=== PATIENT | male | born 1940 | race Caucasian/White ===

== ENCOUNTER → 2020-08-04 12:51 | Outpatient (BNVA) | payer MEDICARE, SELFPAY | PROVIDERS: PCP Internal Medicine; Visit Provider Student in an Organized Health Care Education/Training Program | DX: M31.6 Other giant cell arteritis (principal); M70.62 Trochanteric bursitis, left hip; M35.3 Polymyalgia rheumatica | CPT/HCPCS: 99213 ==

== ENCOUNTER → 2020-08-07 12:34 | Outpatient (BNVA) | payer MEDICARE, SELFPAY | PROVIDERS: PCP Internal Medicine; Visit Provider Internal Medicine | DX: I25.10 Atherosclerotic heart disease of native coronary artery without angina pectoris (principal); E78.5 Hyperlipidemia, unspecified; Z95.5 Presence of coronary angioplasty implant and graft | CPT/HCPCS: 99214 ==

== ENCOUNTER 2020-08-09 09:50 | Outpatient (REF) | payer MEDICARE, SELFPAY ==
[2020-08-09 14:28] LABS: Erythrocyte Sedimentation Rate 21 MM/HR (0-15)
[2020-08-09 14:35] LABS: C Reactive Protein 1.76 mg/dL (< or = 0.50)
[2020-08-09 14:41] LABS: Alanine Aminotransferase 11 U/L (0-40); Albumin Level 4.1 g/dL (3.5-5.0); Alkaline Phosphatase 48 U/L (39-117); Aspartate Amino Transferase 14 U/L (5-37); Bilirubin Direct 0.2 mg/dL (0.0-0.5); Bilirubin Total 0.5 mg/dL (0.0-1.0); Cholesterol 162 mg/dL; HDL Cholesterol 60 mg/dL; LDL Cholesterol Calculated 92 mg/dl; Total Protein 6.8 g/dL (6.5-8.0); Triglycerides 52 mg/dL
== END 2020-08-09 09:51 | disposition home or self-care (01) ==
LOC: HO.10HDL 09:50
PROVIDERS: Student in an Organized Health Care Education/Training Program; Visit Provider Internal Medicine
DX: I25.10 Atherosclerotic heart disease of native coronary artery without angina pectoris (principal); M31.6 Other giant cell arteritis
CPT/HCPCS: 36415; 80061; 80076; 85652; 86140

== ENCOUNTER 2020-08-15 11:13 | Outpatient (REF) | payer MEDICARE, SELFPAY ==
[2020-08-15 12:00] LABS: MANUAL DIFF FLAG NO
[2020-08-15 12:12] LABS: Basophils Percent Auto 0.4 % (0-2); Eosinophils Absolute Auto 0.2 X10*3/uL (0.0-0.4); Eosinophils Percent Auto 2.1 % (0-4); Hematocrit 40.5 % (42-52); Hemoglobin 13.4 g/dl (14.0-18.0); Imm Gran Abs Auto 0.06 X10*3/uL (0.00-0.03); Imm Gran Pct Auto 0.7 % (0.0-0.4); Lymphocytes Absolute Auto 1.9 X10*3/uL (1.2-4.9); Lymphocytes Percent Auto 20.5 % (20-40); Mean Corpuscular HGB Conc 33.1 g/dl (31.0-36.0); Mean Corpuscular Hemoglobin 31.8 pg (27.0-33.0); Mean Corpuscular Volume 96.2 fL (80-98); Monocytes Absolute Auto 0.7 X10*3/uL (0.1-1.2); Monocytes Percent Auto 7.4 % (2-11); Neutrophils Absolute Auto 6.3 X10*3/uL (2.0-8.3); Neutrophils Percent Auto 68.9 % (45-73); Platelet Count 276 X10*3/uL (160-400); Red Blood Count 4.21 X10*6/uL (4.60-5.80); White Blood Count 9.2 X10*3/uL (4.8-10.8)
[2020-08-15 12:41] LABS: Alanine Aminotransferase 14 U/L (0-40); Albumin Level 4.3 g/dL (3.5-5.0); Alkaline Phosphatase 51 U/L (39-117); Anion Gap 12 (12-20); Aspartate Amino Transferase 18 U/L (5-37); Bilirubin Total 0.5 mg/dL (0.0-1.0); Blood Urea Nitrogen 21 mg/dL (9-16); Calcium 9.5 mg/dL (8.4-10.2); Carbon Dioxide 27 mmol/L (22-29); Chloride 104 mmol/L (96-108); Cholesterol 170 mg/dL; Estimated Glomerular Filt Rate > 60; Glucose Fasting 90 mg/dL (60-99); HDL Cholesterol 59 mg/dL; Iron 106 mcg/dL (45-160); LDL Cholesterol Calculated 100 mg/dl; Percent Iron Saturation 34 % (15-50); Potassium 4.2 mmol/l (3.3-5.1); Sodium 139 mmol/L (135-145); Total Iron Binding Capacity 309 mcg/dL (228-428); Total Protein 7.2 g/dL (6.5-8.0); Triglycerides 59 mg/dL; Unsaturated Iron Binding 203 ug/dL
[2020-08-15 12:46] LABS: TSH reflex Free T4 1.83 mIU/mL (0.32-4.0); Vitamin D 25-OH Total 88.6 ng/mL (>30)
[2020-08-15 13:25] LABS: Erythrocyte Sedimentation Rate 16 MM/HR (0-15)
== END 2020-08-15 11:14 | disposition home or self-care (01) ==
LOC: HO.LAB 11:13
PROVIDERS: PCP Internal Medicine; Visit Provider Internal Medicine
DX: M35.3 Polymyalgia rheumatica (principal); E78.00 Pure hypercholesterolemia, unspecified; I25.10 Atherosclerotic heart disease of native coronary artery without angina pectoris; D50.0 Iron deficiency anemia secondary to blood loss (chronic); K21.9 Gastro-esophageal reflux disease without esophagitis; E55.9 Vitamin D deficiency, unspecified; E66.9 Obesity, unspecified
CPT/HCPCS: 36415; 80053; 80061; 82306; 82550; 83540; 84443; 85025; 85652

== ENCOUNTER 2020-08-17 11:44 | Outpatient (REF) | payer MEDICARE, SELFPAY ==
--- NOTE | 2020-08-17 11:52 | XR_ITS ---
EXAMINATION: XR LUMBOSACRAL SPINE CLINICAL INFORMATION: Lower back pain COMPARISON: None TECHNIQUE: Three views of the lumbosacral spine. FINDINGS: No acute fracture or subluxation. Vertebral body height and alignment is maintained. Mild multilevel disc space narrowing. Endplate osteophytes throughout the lumbar spine. The sacroiliac joints are symmetric. The visualized sacrum is intact. The visualized bowel gas pattern is unremarkable. Right upper quadrant surgical clips. IMPRESSION: Moderate multilevel degenerative changes of the lumbar spine.
== END 2020-08-17 11:45 | disposition home or self-care (01) ==
LOC: HO.XRAY 11:44
PROVIDERS: PCP Internal Medicine; Visit Provider Internal Medicine
DX: M54.5 Low back pain (principal)
CPT/HCPCS: 72100

== ENCOUNTER 2020-10-09 10:15 | Outpatient (REF) | payer MEDICARE, SELFPAY ==
[2020-10-09 13:46] LABS: Hematocrit 39.3 % (42-52); Mean Corpuscular HGB Conc 33.1 g/dl (31.0-36.0); Mean Corpuscular Hemoglobin 32.6 pg (27.0-33.0); Mean Corpuscular Volume 98.5 fL (80-98); Mean Platelet Volume 9.2 fL (9.4-12.4); Platelet Count 262 X10*3/uL (160-400); Red Blood Count 3.99 X10*6/uL (4.60-5.80); Red Cell Distribution Width 13.1 % (11.0-16.0)
[2020-10-09 14:25] LABS: Iron 93 mcg/dL (45-160); Percent Iron Saturation 32 % (15-50); Total Iron Binding Capacity 293 mcg/dL (228-428); Unsaturated Iron Binding 200 ug/dL
[2020-10-09 14:46] LABS: Ferritin 215 ng/mL (20-250)
[2020-10-09 15:20] LABS: Folate 7.4 ng/mL (> or = 4.0); Vitamin B12 1996 pg/mL (200-900)
== END 2020-10-09 10:16 | disposition home or self-care (01) ==
LOC: HO.10HDL 10:15
PROVIDERS: Visit Provider Internal Medicine Gastroenterology
DX: Z87.19 Personal history of other diseases of the digestive system (principal)
CPT/HCPCS: 36415; 82607; 82728; 82746; 83540; 85027

== ENCOUNTER 2021-06-11 12:36 | Emergency (ER) | payer MEDICARE, SELFPAY ==
--- NOTE | ~2021-06-11 | XR_ITS ---
EXAMINATION: CHEST AND ABDOMEN CLINICAL INFORMATION: Chest pain. Question perforation or free air. COMPARISON: May 02, 2020 TECHNIQUE: AP film of the chest and 2 views of the abdomen. FINDINGS: Within the chest there is no evidence of acute parenchymal disease, pneumothorax, or pleural effusion. Heart normal size. No evidence of pulmonary edema. Calcified granuloma is seen within the right lower lobe. Degenerative spurring is seen throughout the thoracic spine. No dilated loops of large or small bowel are evident. No free intra-abdominal air is seen. Stool and gas is seen throughout nondilated colon. Clips within the right upper quadrant seen consistent with previous cholecystectomy. Changes of enthesopathy about the pelvis seen. Multilevel degenerative disc disease is seen within the lumbar spine. There appear to be some compression fractures present L1-L3. XR/XR KUB IMPRESSION: No acute parenchymal disease within the chest. No evidence of free intra-abdominal air or obstruction within the abdomen.
--- NOTE | ~2021-06-11 | XR_ITS ---
EXAMINATION: CHEST AND ABDOMEN CLINICAL INFORMATION: Chest pain. Question perforation or free air. COMPARISON: May 02, 2020 TECHNIQUE: AP film of the chest and 2 views of the abdomen. FINDINGS: Within the chest there is no evidence of acute parenchymal disease, pneumothorax, or pleural effusion. Heart normal size. No evidence of pulmonary edema. Calcified granuloma is seen within the right lower lobe. Degenerative spurring is seen throughout the thoracic spine. No dilated loops of large or small bowel are evident. No free intra-abdominal air is seen. Stool and gas is seen throughout nondilated colon. Clips within the right upper quadrant seen consistent with previous cholecystectomy. Changes of enthesopathy about the pelvis seen. Multilevel degenerative disc disease is seen within the lumbar spine. There appear to be some compression fractures present L1-L3. XR/XR chest 1V IMPRESSION: No acute parenchymal disease within the chest. No evidence of free intra-abdominal air or obstruction within the abdomen.
[2021-06-11 13:05] VITALS: BP 138/66; PULSE 64; RESP 17; TEMP 36.8; O2SAT 96; BMI 29.5
--- NOTE | 2021-06-11 13:11 | ECG_ITS ---
Test Reason : CP Blood Pressure : / mmHG Vent. Rate : 064 BPM Atrial Rate : 064 BPM P-R Int : 162 ms QRS Dur : 068 ms QT Int : 400 ms P-R-T Axes : -22 -01 048 degrees QTc Int : 412 ms Normal sinus rhythm Septal infarct , age undetermined Abnormal ECG When compared with ECG of 01-MAY-2020 23:35, Septal infarct is now Present Referred By: Tony Ken Electronically Signed By:HOMER KINCAID MD
--- NOTE | 2021-06-11 13:13 | ED.GENADULT ---
HPI - General Adult General Chief complaint: General Medical Stated complaint: ? gi bleed Time Seen by Provider: 06/11/21 13:11 Related Data Home Medications Medication Instructions Recorded Confirmed acetaminophen 650 mg 650 mg PO Q8H 08/02/20 10/10/20 tablet,extended release ascorbate calcium (vitamin C) 500 500 mg PO DAILY 08/02/20 10/10/20 mg tablet aspirin 81 mg chewable tablet 81 mg PO DAILY 08/02/20 10/10/20 omega-3 fatty acids 1,000 mg 1,000 mg PO DAILY 08/02/20 10/10/20 capsule (Fish Oil Concentrate) omeprazole 20 mg capsule,delayed 20 mg PO BID 08/02/20 10/10/20 release hydrochlorothiazide 25 mg tablet 25 mg PO DAILY 08/07/20 10/10/20 rosuvastatin 20 mg tablet 20 mg PO BEDTIME 08/07/20 10/10/20 furosemide 20 mg tablet 20 mg PO DAILY 08/17/20 10/10/20 gabapentin 300 mg capsule 300 mg PO DAILY 10/10/20 10/10/20 Previous Rx's Medication Instructions Recorded allopurinol 100 mg tablet 100 mg PO DAILY 30 Days #30 tab 08/17/20 clotrimazole-betamethasone 1 1 applic TOPICAL BID 28 Days #45 g 08/17/20 %-0.05 % topical cream metoprolol succinate 25 mg 25 mg PO DAILY #90 tab 03/02/21 tablet,extended release 24 hr Allergies Allergy/AdvReac Type Severity Reaction Status Date / Time atorvastatin AdvReac Intermediate Weakness Verified 06/11/21 13:05 [facility] Past Medical History Medical History Atherosclerotic cardiovascular disease Benign essential hypertension 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 pectoris GERD (gastroesophageal reflux disease) Gout Gout Heart attack Hemorrhage of gastrointestinal tract, unspecified Hyperlipidemia, unspecified Iron deficiency anemia Lumbar degenerative disc disease Obesity (BMI 30-39.9) Pure hypercholesterolemia Spinal cord cysts (~1977) Spinal stenosis Statin intolerance Vitamin D deficiency Surgical History History of cholecystectomy History of colonoscopy (~02/23/19) History of esophagogastroduodenoscopy (EGD) History of knee replacement procedure of left knee (~2012) History of knee replacement procedure of right knee (~11/2017) Hx of cardiac cath Stented coronary artery (~04/2018) Family History Family History Father Emphysema lung Mother No problems noted. Daughter Multiple sclerosis Social History Social History (Updated 10/10/20 @ 14:34 by Lizzy Lockwood CMA) Household Members: Spouse Housing: House Are you a primary clinical manager home care to a significant other at home: No Do you presently have visiting nurse or other home services: No 75 years or older and lives alone: Yes Alcohol intake: never Advance Directives Date on File: 08/09/20 service: No Current occupational status: retired Physical Exam Vital Signs: Vital Signs: Last Vital Signs Temp 98.2 F 06/11/21 13:05 Pulse 64 06/11/21 13:05 Resp 17 06/11/21 13:05 BP 138/66 06/11/21 13:05 Pulse Ox 96 06/11/21 13:05 Body Mass Index 29.5 Course Course Course Narrative: Patient presents to the ED for abdominal pain/mid sternal chest pain after eating and stool is black. patient taking iron pills. patient vital signs are stable. patient made a level 2 priority to be brought to the ED quickly. Labs, ekg ordered. This is rapid medical screening Medical Decision Making Lab Data Result diagrams: 06/11/21 13:30 06/11/21 13:30 Labs: Lab Results 06/11/21 06/11/21 06/11/21 Range/Units 13:30 13:30 13:30 WBC 7.1 (4.8-10.8) X10*3/uL RBC 4.00 L (4.60-5.80) X10*6/uL Hgb 13.6 L (14.0-18.0) g/dl Hct 40.2 L (42-52) % MCV 100.5 H (80-98) fL MCH 34.0 H (27.0-33.0) pg MCHC 33.8 (31.0-36.0) g/dl RDW 13.3 (11.0-16.0) % Plt Count 249 (160-400) X10*3/uL MPV 8.8 L (9.4-12.4) fL Immature Gran % (Auto) 0.1 (0.0-0.4) % Neut % (Auto) 66.8 (45-73) % Lymph % (Auto) 21.4 (20-40) % [place] % (Auto) 9.2 (2-11) % Eos % (Auto) 2.1 (0-4) % Baso % (Auto) 0.4 (0-2) % Lymph # (Auto) 1.5 (1.2-4.9) X10*3/uL [place] # (Auto) 0.7 (0.1-1.2) X10*3/uL Eos # (Auto) 0.2 (0.0-0.4) X10*3/uL Baso # (Auto) 0.0 (0.0-0.2) X10*3/uL Abs Immat Gran (auto) 0.01 (0.00-0.03) X10*3/uL Absolute Neuts (auto) 4.7 (2.0-8.3) X10*3/uL Absolute Nucleated RBC 0.000 (0.0-0.012) X10*3/uL Nucleated RBC % (auto) 0.0 (0.0-0.2) /100WBC PT 11.9 (9.9-13.0) SEC INR 1.0 (0.9-1.1) APTT 30.6 (24.1-38.0) SEC Sodium 139 (135-145) mmol/L Potassium 4.3 (3.3-5.1) mmol/L Chloride 104 (96-108) mmol/L Carbon Dioxide 24 (22-29) mmol/L Anion Gap 15 (12-20) BUN 15 (9-16) mg/dL Creatinine 0.98 (0.5-1.4) mg/dL Estim Creat Clear Calc 60.7 Estimated GFR > 60 Random Glucose 89 (60-115) mg/dL Calcium 9.5 (8.4-10.2) mg/dL Total Bilirubin 0.3 (0.0-1.0) mg/dL Direct Bilirubin 0.2 (0.0-0.5) mg/dL AST 21 (5-37) U/L ALT 17 (0-40) U/L Alkaline Phosphatase 47 (39-117) U/L Troponin I High Sens (<3.5-35.0) ng/L B-Natriuretic Peptide (<100) pg/mL Total Protein 6.7 (6.5-8.0) g/dL Albumin 4.2 (3.5-5.0) g/dL Lipase 16 (8-78) U/L Stool Occult Blood (NEGATIVE) 06/11/21 06/11/21 Range/Units 13:30 20:13 WBC (4.8-10.8) X10*3/uL RBC (4.60-5.80) X10*6/uL Hgb (14.0-18.0) g/dl Hct (42-52) % MCV (80-98) fL MCH (27.0-33.0) pg MCHC (31.0-36.0) g/dl RDW (11.0-16.0) % Plt Count (160-400) X10*3/uL MPV (9.4-12.4) fL Immature Gran % (Auto) (0.0-0.4) % Neut % (Auto) (45-73) % Lymph % (Auto) (20-40) % [place] % (Auto) (2-11) % Eos % (Auto) (0-4) % Baso % (Auto) (0-2) % Lymph # (Auto) (1.2-4.9) X10*3/uL [place] # (Auto) (0.1-1.2) X10*3/uL Eos # (Auto) (0.0-0.4) X10*3/uL Baso # (Auto) (0.0-0.2) X10*3/uL Abs Immat Gran (auto) (0.00-0.03) X10*3/uL Absolute Neuts (auto) (2.0-8.3) X10*3/uL Absolute Nucleated RBC (0.0-0.012) X10*3/uL Nucleated RBC % (auto) (0.0-0.2) /100WBC PT (9.9-13.0) SEC INR (0.9-1.1) APTT (24.1-38.0) SEC Sodium (135-145) mmol/L Potassium (3.3-5.1) mmol/L Chloride (96-108) mmol/L Carbon Dioxide (22-29) mmol/L Anion Gap (12-20) BUN (9-16) mg/dL Creatinine (0.5-1.4) mg/dL Estim Creat Clear Calc Estimated GFR Random Glucose (60-115) mg/dL Calcium (8.4-10.2) mg/dL Total Bilirubin (0.0-1.0) mg/dL Direct Bilirubin (0.0-0.5) mg/dL AST (5-37) U/L ALT (0-40) U/L Alkaline Phosphatase (39-117) U/L Troponin I High Sens 5.1 (<3.5-35.0) ng/L B-Natriuretic Peptide 111 H (<100) pg/mL Total Protein (6.5-8.0) g/dL Albumin (3.5-5.0) g/dL Lipase (8-78) U/L Stool Occult Blood NEGATIVE (NEGATIVE) Discharge Plan Discharge Clinical Impression: Gastritis Patient Disposition: Home, Self-Care Instructions: Gastritis (ED) Additional Instructions: Please increase the omeprazole to take 2 tablets twice a day Prescriptions: No Action metoprolol succinate 25 mg tablet extended release 24 hr 25 mg PO DAILY Qty: 90 RF: 0 furosemide 20 mg tablet 20 mg PO DAILY RF: 0 allopurinol 100 mg tablet 100 mg PO DAILY 30 Days Qty: 30 RF: 3 clotrimazole-betamethasone 1-0.05 % cream 1 applic topical BID 28 Days Qty: 45 RF: 1 rosuvastatin 20 mg tablet 20 mg PO BEDTIME RF: 0 hydrochlorothiazide 25 mg tablet 25 mg PO DAILY RF: 0 gabapentin 300 mg capsule 300 mg PO DAILY RF: 0 omega-3 fatty acids [Fish Oil Concentrate] 1,000 mg capsule 1,000 mg PO DAILY RF: 0 aspirin 81 mg tablet,chewable 81 mg PO DAILY RF: 0 omeprazole 20 mg capsule,delayed release(DR/EC) 20 mg PO BID RF: 0 acetaminophen 650 mg tablet extended release 650 mg PO Q8H RF: 0 ascorbate calcium (vitamin C) 500 mg tablet 500 mg PO DAILY RF: 0 Referrals: Sanam Nguyen MD [Physician] - 2 days Interventions: ED Discharge Assessment Last Done: 06/11/21 20:50 Discharge Date/Time: 06/11/21 20:51
[2021-06-11 13:36] LABS: MANUAL DIFF FLAG NO
[2021-06-11 13:38] LABS: Basophils Percent Auto 0.4 % (0-2); Eosinophils Absolute Auto 0.2 X10*3/uL (0.0-0.4); Eosinophils Percent Auto 2.1 % (0-4); Hematocrit 40.2 % (42-52); Hemoglobin 13.6 g/dl (14.0-18.0); Imm Gran Abs Auto 0.01 X10*3/uL (0.00-0.03); Imm Gran Pct Auto 0.1 % (0.0-0.4); Lymphocytes Absolute Auto 1.5 X10*3/uL (1.2-4.9); Lymphocytes Percent Auto 21.4 % (20-40); Mean Corpuscular HGB Conc 33.8 g/dl (31.0-36.0); Mean Corpuscular Volume 100.5 fL (80-98); Mean Platelet Volume 8.8 fL (9.4-12.4); Monocytes Absolute Auto 0.7 X10*3/uL (0.1-1.2); Monocytes Percent Auto 9.2 % (2-11); Neutrophils Absolute Auto 4.7 X10*3/uL (2.0-8.3); Neutrophils Percent Auto 66.8 % (45-73); Platelet Count 249 X10*3/uL (160-400); Red Cell Distribution Width 13.3 % (11.0-16.0); White Blood Count 7.1 X10*3/uL (4.8-10.8)
[2021-06-11 13:45] LABS: Prothrombin Time 11.9 SEC (9.9-13.0)
[2021-06-11 13:48] LABS: Partial Thromboplastin Time 30.6 SEC (24.1-38.0)
[2021-06-11 14:00] LABS: Alanine Aminotransferase 17 U/L (0-40); Albumin Level 4.2 g/dL (3.5-5.0); Alkaline Phosphatase 47 U/L (39-117); Anion Gap 15 (12-20); Aspartate Amino Transferase 21 U/L (5-37); Bilirubin Direct 0.2 mg/dL (0.0-0.5); Bilirubin Total 0.3 mg/dL (0.0-1.0); Blood Urea Nitrogen 15 mg/dL (9-16); Calcium 9.5 mg/dL (8.4-10.2); Carbon Dioxide 24 mmol/L (22-29); Chloride 104 mmol/L (96-108); Creatinine Clr Calc Pharmacy 60.7; Estimated Glomerular Filt Rate > 60; Glucose Random 89 mg/dL (60-115); Lipase 16 U/L (8-78); Potassium 4.3 mmol/L (3.3-5.1); Sodium 139 mmol/L (135-145); Total Protein 6.7 g/dL (6.5-8.0)
[2021-06-11 14:04] LABS: B Type Natriuretic Peptide 111 pg/mL (<100); Troponin-I High Sensitivity 5.1 ng/L (<3.5-35.0)
[2021-06-11 20:26] LABS: OBS Int Ctl Valid YES; OBS1 NEGATIVE (NEGATIVE)
--- NOTE | 2021-06-11 20:33 | ED_ITS ---
HPI - Abdominal Pain General Chief Complaint: General Medical Stated Complaint: ? gi bleed Time Seen by Provider: 06/11/21 13:11 History of Present Illness HPI narrative: Patient is an 80-year-old male with a history of giant cell arteritis. Chronically on steroids. History of peptic ulcer disease. Last endoscopy done about a year ago did not show any recurrence. Patient is on a PPI. History of coronary artery disease status post stent. Patient denies any chest pain. Complaining of pain in the epigastric area worse with eating. Patient denies any diaphoresis. No nausea. Patient complaining of black stool but is on iron supplement. Denies any history of constipation. No Pepto- Bismol. No history of NSAID use. No history of alcohol use. Patient is from home. No dizziness. Related Data Home Medications Medication Instructions Recorded Confirmed acetaminophen 650 mg 650 mg PO Q8H 08/02/20 10/10/20 tablet,extended release ascorbate calcium (vitamin C) 500 500 mg PO DAILY 08/02/20 10/10/20 mg tablet aspirin 81 mg chewable tablet 81 mg PO DAILY 08/02/20 10/10/20 omega-3 fatty acids 1,000 mg 1,000 mg PO DAILY 08/02/20 10/10/20 capsule (Fish Oil Concentrate) omeprazole 20 mg capsule,delayed 20 mg PO BID 08/02/20 10/10/20 release hydrochlorothiazide 25 mg tablet 25 mg PO DAILY 08/07/20 10/10/20 rosuvastatin 20 mg tablet 20 mg PO BEDTIME 08/07/20 10/10/20 furosemide 20 mg tablet 20 mg PO DAILY 08/17/20 10/10/20 gabapentin 300 mg capsule 300 mg PO DAILY 10/10/20 10/10/20 Previous Rx's Medication Instructions Recorded allopurinol 100 mg tablet 100 mg PO DAILY 30 Days #30 tab 08/17/20 clotrimazole-betamethasone 1 1 applic TOPICAL BID 28 Days #45 g 08/17/20 %-0.05 % topical cream metoprolol succinate 25 mg 25 mg PO DAILY #90 tab 03/02/21 tablet,extended release 24 hr Allergies Allergy/AdvReac Type Severity Reaction Status Date / Time atorvastatin AdvReac Intermediate Weakness Verified 06/11/21 13:05 Review of Systems Review of Systems Positive epigastric pain. No nausea no vomiting no diarrhea Positive black stool No chest pain or shortness of breath No diaphoresis Yes all other systems are reviewed and are negative Physical Exam Vital Signs: Vital Signs: Last Vital Signs Temp 98.2 F 06/11/21 13:05 Pulse 64 06/11/21 13:05 Resp 17 06/11/21 13:05 BP 138/66 06/11/21 13:05 Pulse Ox 96 06/11/21 13:05 Body Mass Index 29.5 Appearance: Alert. Oriented X3. No acute distress. Eyes: Pupils equal, round and reactive to light. ENT: Pharynx normal. Neck: Normal inspection. Neck supple. No lymph nodes noted. No crepitus CVS: Normal heart rate and rhythm. Pulses normal. Normal S1 and S2 Respiratory: No respiratory distress. Breath sounds normal. No Wheezing. No rales Abdomen: Soft and nontender. No rigidity. No distention. good BS x4 Skin: Skin warm and dry. Normal skin color. Normal skin turgor. Rectal exam done with nurse Teeny present. Appears to be dark brown stool heme- negative. Extremities: No lower extremity edema. Neurovascular intact to all extremities. No Lacerations. No Rash Neuro: Oriented X 3. No motor deficit. No sensory deficit. Moving all extermities. No slurred speech MDM - Abdominal Pain MDM Narrative Medical decision making narrative: Patient well-appearing hemoglobin is 13.6. This is above his patient's baseline. Rectal exam was heme-negative. Patient's black appearing stool most likely secondary to iron supplement. BUN and creatinine is normal no evidence for upper GI bleed. Patient has a history of being on chronic steroid. EKG did not show any acute changes. Patient's LFTs are normal. Lipase normal. No evidence for pancreatitis. Patient's symptoms been ongoing for weeks. Is already on a PPI. Likely related to steroid use and gastritis. Will have patient increase the dose of omeprazole. Will have patient closely follow-up with GI on an outpatient basis. Patient's troponin is negative. Patient's BMP is normal for his age. Will discharge patient home. C lose follow-up outpatient basis. Patient's EKG showed a sinus pattern heart rate is 70 FL QRS QT within normal limits there is no significant change when compared to previous. Lab Data Result diagrams: 06/11/21 13:30 06/11/21 13:30 Labs: Lab Results 06/11/21 06/11/21 06/11/21 Range/Units 13:30 13:30 13:30 WBC 7.1 (4.8-10.8) X10*3/uL RBC 4.00 L (4.60-5.80) X10*6/uL Hgb 13.6 L (14.0-18.0) g/dl Hct 40.2 L (42-52) % MCV 100.5 H (80-98) fL MCH 34.0 H (27.0-33.0) pg MCHC 33.8 (31.0-36.0) g/dl RDW 13.3 (11.0-16.0) % Plt Count 249 (160-400) X10*3/uL MPV 8.8 L (9.4-12.4) fL Immature Gran % (Auto) 0.1 (0.0-0.4) % Neut % (Auto) 66.8 (45-73) % Lymph % (Auto) 21.4 (20-40) % [place] % (Auto) 9.2 (2-11) % Eos % (Auto) 2.1 (0-4) % Baso % (Auto) 0.4 (0-2) % Lymph # (Auto) 1.5 (1.2-4.9) X10*3/uL [place] # (Auto) 0.7 (0.1-1.2) X10*3/uL Eos # (Auto) 0.2 (0.0-0.4) X10*3/uL Baso # (Auto) 0.0 (0.0-0.2) X10*3/uL Abs Immat Gran (auto) 0.01 (0.00-0.03) X10*3/uL Absolute Neuts (auto) 4.7 (2.0-8.3) X10*3/uL Absolute Nucleated RBC 0.000 (0.0-0.012) X10*3/uL Nucleated RBC % (auto) 0.0 (0.0-0.2) /100WBC PT 11.9 (9.9-13.0) SEC INR 1.0 (0.9-1.1) APTT 30.6 (24.1-38.0) SEC Sodium 139 (135-145) mmol/L Potassium 4.3 (3.3-5.1) mmol/L Chloride 104 (96-108) mmol/L Carbon Dioxide 24 (22-29) mmol/L Anion Gap 15 (12-20) BUN 15 (9-16) mg/dL Creatinine 0.98 (0.5-1.4) mg/dL Estim Creat Clear Calc 60.7 Estimated GFR > 60 Random Glucose 89 (60-115) mg/dL Calcium 9.5 (8.4-10.2) mg/dL Total Bilirubin 0.3 (0.0-1.0) mg/dL Direct Bilirubin 0.2 (0.0-0.5) mg/dL AST 21 (5-37) U/L ALT 17 (0-40) U/L Alkaline Phosphatase 47 (39-117) U/L Troponin I High Sens (<3.5-35.0) ng/L B-Natriuretic Peptide (<100) pg/mL Total Protein 6.7 (6.5-8.0) g/dL Albumin 4.2 (3.5-5.0) g/dL Lipase 16 (8-78) U/L Stool Occult Blood (NEGATIVE) 06/11/21 06/11/21 Range/Units 13:30 20:13 WBC (4.8-10.8) X10*3/uL RBC (4.60-5.80) X10*6/uL Hgb (14.0-18.0) g/dl Hct (42-52) % MCV (80-98) fL MCH (27.0-33.0) pg MCHC (31.0-36.0) g/dl RDW (11.0-16.0) % Plt Count (160-400) X10*3/uL MPV (9.4-12.4) fL Immature Gran % (Auto) (0.0-0.4) % Neut % (Auto) (45-73) % Lymph % (Auto) (20-40) % [place] % (Auto) (2-11) % Eos % (Auto) (0-4) % Baso % (Auto) (0-2) % Lymph # (Auto) (1.2-4.9) X10*3/uL [place] # (Auto) (0.1-1.2) X10*3/uL Eos # (Auto) (0.0-0.4) X10*3/uL Baso # (Auto) (0.0-0.2) X10*3/uL Abs Immat Gran (auto) (0.00-0.03) X10*3/uL Absolute Neuts (auto) (2.0-8.3) X10*3/uL Absolute Nucleated RBC (0.0-0.012) X10*3/uL Nucleated RBC % (auto) (0.0-0.2) /100WBC PT (9.9-13.0) SEC INR (0.9-1.1) APTT (24.1-38.0) SEC Sodium (135-145) mmol/L Potassium (3.3-5.1) mmol/L Chloride (96-108) mmol/L Carbon Dioxide (22-29) mmol/L Anion Gap (12-20) BUN (9-16) mg/dL Creatinine (0.5-1.4) mg/dL Estim Creat Clear Calc Estimated GFR Random Glucose (60-115) mg/dL Calcium (8.4-10.2) mg/dL Total Bilirubin (0.0-1.0) mg/dL Direct Bilirubin (0.0-0.5) mg/dL AST (5-37) U/L ALT (0-40) U/L Alkaline Phosphatase (39-117) U/L Troponin I High Sens 5.1 (<3.5-35.0) ng/L B-Natriuretic Peptide 111 H (<100) pg/mL Total Protein (6.5-8.0) g/dL Albumin (3.5-5.0) g/dL Lipase (8-78) U/L Stool Occult Blood NEGATIVE (NEGATIVE) Discharge Plan Discharge Clinical Impression: Gastritis Patient Disposition: Home, Self-Care Instructions: Gastritis (ED) Additional Instructions: Please increase the omeprazole to take 2 tablets twice a day Prescriptions: No Action metoprolol succinate 25 mg tablet extended release 24 hr 25 mg PO DAILY Qty: 90 RF: 0 furosemide 20 mg tablet 20 mg PO DAILY RF: 0 allopurinol 100 mg tablet 100 mg PO DAILY 30 Days Qty: 30 RF: 3 clotrimazole-betamethasone 1-0.05 % cream 1 applic topical BID 28 Days Qty: 45 RF: 1 rosuvastatin 20 mg tablet 20 mg PO BEDTIME RF: 0 hydrochlorothiazide 25 mg tablet 25 mg PO DAILY RF: 0 gabapentin 300 mg capsule 300 mg PO DAILY RF: 0 omega-3 fatty acids [Fish Oil Concentrate] 1,000 mg capsule 1,000 mg PO DAILY RF: 0 aspirin 81 mg tablet,chewable 81 mg PO DAILY RF: 0 omeprazole 20 mg capsule,delayed release(DR/EC) 20 mg PO BID RF: 0 acetaminophen 650 mg tablet extended release 650 mg PO Q8H RF: 0 ascorbate calcium (vitamin C) 500 mg tablet 500 mg PO DAILY RF: 0 Referrals: Sanam Nguyen MD [Physician] - 2 days [facility] Past Medical History Medical History Atherosclerotic cardiovascular disease Benign essential hypertension Coronary artery disease involving [place] heart without angina pectoris GERD (gastroesophageal reflux disease) Gout Gout Heart attack Hemorrhage of gastrointestinal tract, unspecified Hyperlipidemia, unspecified Iron deficiency anemia Lumbar degenerative disc disease Obesity (BMI 30-39.9) Pure hypercholesterolemia Spinal cord cysts (~1977) Spinal stenosis Statin intolerance Vitamin D deficiency Surgical History History of cholecystectomy History of colonoscopy (~02/23/19) History of esophagogastroduodenoscopy (EGD) History of knee replacement procedure of left knee (~2012) History of knee replacement procedure of right knee (~11/2017) Hx of cardiac cath Stented coronary artery (~04/2018) Family History Family History Father Emphysema lung Mother No problems noted. Daughter Multiple sclerosis Social History Social History (Updated 10/10/20 @ 14:34 by Lizzy Lockwood CMA) Household Members: Spouse Housing: House Are you a primary critical care physician assistant to a significant other at home: No Do you presently have visiting nurse or other home services: No Alcohol intake: never Advance Directives: Yes Advance Directives on File: Yes Advance Directives Date on File: 08/09/20 service: No Current occupational status: retired
== END 2021-06-11 20:51 | disposition home or self-care (01) ==
PROVIDERS: Physician Assistant; Emergency Provider Emergency Medicine Emergency Medical Services
DX: K29.70 Gastritis, unspecified, without bleeding (principal); R07.9 Chest pain, unspecified; R06.02 Shortness of breath; Z79.899 Other long term (current) drug therapy
CPT/HCPCS: 36415; 71045; 74018; 80053; 80076; 82248; 82272; 83690; 83880; 84484; 85025; 85610; 85730; 93005; 99283